=== PATIENT | female | born 1990 | race African-American/Black ===

== ENCOUNTER 2020-08-19 15:38 | Emergency (ER) | payer SELFPAY ==
--- NOTE | 2020-08-19 16:14 | PC.NURSE ---
While sitting at intake desk pt decided that she did not want to be seen by provider. pt encouraged to stay for eval of c/o htn. pt states that she will seek a pcp. pt continues to deny wanting to continue with intake/triage.
== END 2020-08-19 16:14 | disposition left against medical advice (07) ==
DX: I10 Essential (primary) hypertension (principal)
CPT/HCPCS: 99199

== ENCOUNTER 2020-08-20 17:20 | Emergency (ER) | payer MEDICAID, SELFPAY ==
[2020-08-20 17:26] VITALS: BP 161/98; PULSE 66; RESP 18; TEMP 36.4; O2SAT 99
--- NOTE | 2020-08-20 17:46 | ED.GENADULT ---
HPI - General Adult General Chief complaint: Headache Stated complaint: htn, headache Time Seen by Provider: 08/20/20 17:32 Source: patient Mode of arrival: ambulatory Limitations: no limitations History of Present Illness HPI narrative: Patient is a 30-year-old female who presents with generalized headache for the last 2 weeks it comes and goes taking [id number] medications with minimal improvement has upcoming appointment with new primary care doctor has not taken anything other than [id number] medications had a history of high tension in which resolved after the patient know she has been taking her pressure at home and getting blood pressure around 160/100 patient does not take anything for her blood pressure patient on arrival to emergency department is in the room in no distress presents per private vehicle does not appear uncomfortable denies illness vomiting or other complaints Related Data Allergies Allergy/AdvReac Type Severity Reaction Status Date / Time No Known Allergies Allergy Unknown Verified 08/20/20 17:30 Review of Systems Review of Systems: All systems reviewed & are unremarkable except as noted in HPI and below PMFSH Past Medical History Medical History Gestational hypertension Pre-eclampsia Surgical History Surgical History H/O section Family History Family History Other Diabetes mellitus Unknown family medical history Social History Social History Smoking status: Never smoker Second hand tobacco smoke exposure: No Alcohol intake: current Substance use: never Gender identity (if verbalized by the patient): Female Spiritual care concerns: No Exam Narrative: Exam Narrative: GENERAL: Well-appearing, well-nourished, and in no acute distress. HEAD: Normocephalic, atraumatic. EYES: PERRLA and EOMI. ENT: Nares clear, no rhinorrhea or epistaxis. Mucous membranes moist. CHEST: Clear to auscultation. No respiratory distress. No wheezes rales or rhonchi HEART: Regular rate and rhythm. No murmur heard. EXTREMITIES: Normal range of motion. No edema. SKIN: Warm, dry, no rash. NEURO: No focal deficits. Alert and oriented x3. PSYCH: Normal mood and affect. Course Course Emergency Course: Patient was given blood pressure medication in the emergency department and will be discharged home on blood pressure medicine is also been advised to keep a diary of her blood pressures to take to her upcoming appointment. Patient without high risk changes in the blood work felt appropriate for outpatient reevaluation provided with reasons to return patient agrees with this plan patient hemodynamically stable at this time Vital Signs Vital signs: Vital Signs Temperature 97.5 F L 08/20/20 17:26 Pulse Rate 66 08/20/20 17:26 Respiratory Rate 18 08/20/20 17:26 Blood Pressure 161/98 H 08/20/20 17:26 Pulse Oximetry 99 08/20/20 17:26 Temperature 98 F 08/20/20 20:06 Pulse Rate 64 08/20/20 20:48 Respiratory Rate 16 08/20/20 20:48 Blood Pressure 151/115 H 08/20/20 20:48 Pulse Oximetry 100 08/20/20 20:48 Medical Decision Making MDM Narrative Medical decision making narrative: Patients headache was not sudden or maximal in onset. There are no focal neurological deficits on exam. Subarachnoid hemorrhage is felt to be unlikey at this time. There is no history of fever, and neck is supple without meningismus, making meningitis unlikely. Patient's blood pressure likely could be an etiology for headache patient resting comfortably in the room during her visit with improvement with medications will be sent home on a low-dose blood pressure medicine pending her primary care follow-up. patients headache is felt to be a reasonabl
[2020-08-20] MEDS: KETOROLAC 30 MG/ML VIAL (*BKC) IV PUSH (18:07)
[2020-08-20] MEDS: SODIUM CHLORIDE 0.9% IV 1,000 ML 999 ML IV CONT (18:07)
[2020-08-20 18:17] LABS: Basophils Percent Auto 0.4 % (0.2-1.2); Eosinophils Absolute Auto 0.4 K/mm3 (0-0.3); Eosinophils Percent Auto 5.1 % (0-4.4); Hematocrit 36.2 % (37.0-47.0); Hemoglobin 12.5 g/dL (12.0-15.0); Immature Granulocyte Absolute 0.01 K/mm3 (0.00-0.031); Immature Granulocyte Percent A 0.1 % (0-0.5); Lymphocytes Absolute Auto 1.89 K/mm3 (0.9-3.2); Lymphocytes Percent Auto 27.7 % (18.3-44.2); Mean Corpuscular HGB Conc 34.5 g/dl (32-36); Mean Corpuscular Hemoglobin 30.6 pg (26-34); Mean Corpuscular Volume 88.5 fl (80-100); Mean Platelet Volume 9.1 fl (7.4-10.4); Monocytes Absolute Auto 0.4 K/mm3 (0.1-0.6); Monocytes Percent Auto 6.3 % (2.6-8.5); Neutrophils Absolute Auto 4.1 K/mm3 (1.3-6.7); Neutrophils Percent Auto 60.4 % (45.5-73.1); Platelet Count Result 303 k/mm3 (150-375); Red Blood Count 4.09 M/mm3 (4.2-5.4); Red Cell Distribution Width 12.4 % (11.5-14.5); White Blood Count 6.8 K/mm3 (4.5-10.0)
[2020-08-20 19:01] LABS: Anion Gap 4 mmol/L (8-16); Blood Urea Nitrogen 13 mg/dL (7-17); Calcium 8.7 mg/dL (8.4-10.2); Carbon Dioxide 31 mmol/L (22-30); Chloride 105 mmol/L (98-107); Estimated CRCL calculation 92 ml/min; Estimated Glomerular Filt Rate > 60; Glucose 86 mg/dL (65-105); Potassium 3.4 mmol/L (3.4-5.0); Sodium 140 mmol/L (137-145)
[2020-08-20 20:06] VITALS: BP 180/110; PULSE 68; RESP 16; TEMP 36.6; O2SAT 100
[2020-08-20] MEDS: cloNIDine HCL 0.1 MG TABLET PO (20:12)
[2020-08-20] MEDS: LORazepam INJ (*CRX) 2 MG/ML VIAL 1 MG IV PUSH (20:12)
[2020-08-20 20:48] VITALS: BP 151/115; PULSE 64; RESP 16; O2SAT 100
[2020-08-20] MEDS: hydrALAZINE HCL 20 MG/ML VIAL 10 MG IV PUSH (20:55)
[2020-08-20 21:21] VITALS: BP 116/100; PULSE 77; RESP 16; TEMP 36.6; O2SAT 99
== END 2020-08-20 21:30 | disposition home or self-care (01) ==
PROVIDERS: Emergency Medicine Emergency Medical Services; Emergency Provider Emergency Medicine
DX: R51.9 Headache, unspecified (principal); R03.0 Elevated blood-pressure reading, without diagnosis of hypertension
CPT/HCPCS: 36415; 80048; 85025; 96361; 96374; 96375; 99284; A9270; J0360; J1885; J2060; J7030

== ENCOUNTER 2020-10-05 09:04 | Emergency (ER) | payer MEDICAID, SELFPAY ==
[2020-10-05 09:07] VITALS: BP 136/89; PULSE 69; RESP 18; TEMP 36.1; O2SAT 99
--- NOTE | 2020-10-05 09:50 | ED.BACK ---
HPI - Back Pain/Injury General Chief Complaint: Back Pain/Injury Stated Complaint: back pain Time Seen by Provider: 10/05/20 09:06 Source: RN notes reviewed History of Present Illness HPI Narrative: Patient presents emergency department from home for back pain. Patient states pain began 3 days ago pain is located bilateral lower back and radiates into the buttocks described as aching in nature pain is worse with bending over states she has been taking ibuprofen Tylenol for pain at home with no relief with last dose yesterday denies any fevers or chills chest pain shortness of breath abdominal pain nausea vomiting numbness or tingling in the extremities bowel or bladder incontinence or any other symptoms. Denies any direct trauma or injury Related Data Allergies Allergy/AdvReac Type Severity Reaction Status Date / Time No Known Allergies Allergy Unknown Verified 10/05/20 09:12 Review of Systems Review of Systems: Narrative: Gen.: Denies fevers or chills ENT: Denies congestion Respiratory: Denies shortness of breath or cough CV: Denies chest pain or palpitations GI: Denies abdominal pain nausea, emesis or diarrhea denies bowel or bladder incontinence Musculoskeletal: See HPI Neuro: Denies numbness, tingling, weakness or focal weakness Skin: Denies rash Except as documented, all other systems reviewed and negative [facility] Past Medical History Medical History Gestational hypertension Pre-eclampsia Surgical History Surgical History H/O section Family History Family History Other Diabetes mellitus Unknown family medical history Social History Social History Smoking status: Never smoker Second hand tobacco smoke exposure: No Alcohol intake: current Substance use: never Gender identity (if verbalized by the patient): Female Spiritual care concerns: No Exam Narrative: Exam Narrative: APPEARANCE: No acute distress, nontoxic, resting in bed Eyes: EOMI HEENT: Normocephalic, atraumatic, CV: Regular rate and rhythm without murmur RESPIRATORY: No respiratory distress. Clear to auscultation bilaterally. Abdomen: Soft and nontender, no rebound or guarding MUSCULOSKELETAl: Moves all extremities, no clubbing cyanosis or edema Back: No midline lumbar tenderness to palpation or step-off, tender to palpation over bilateral paravertebral muscles L3-5 , pain increased with forward flexion NEURO: Awake and alert. Following commands, speech normal, no focal deficits, muscle strength 5 out of 5 bilateral lower extremities, bilateral patellar reflex 2+ SKIN:: Warm, dry. Normal Color no rash or lesions Course Course Emergency Course: Discussed with patient results of workup and diagnosis. Discussed need for follow-up with primary care, proper use of medication, and reasons to return to the emergency department. Patient understands and agrees to current treatment plan Vital Signs Vital signs: Vital Signs Temperature 97.0 F L 10/05/20 09:07 Pulse Rate 69 10/05/20 09:07 Respiratory Rate 18 10/05/20 09:07 Blood Pressure 136/89 10/05/20 09:07 Pulse Oximetry 99 10/05/20 09:07 Temperature 97.0 F L 10/05/20 09:07 Pulse Rate 69 10/05/20 09:07 Respiratory Rate 18 10/05/20 09:07 Blood Pressure 136/89 10/05/20 09:07 Pulse Oximetry 99 10/05/20 09:07 MDM - Back Pain/Injury MDM Narrative Medical decision making narrative: Patient?s pain is positional and localized to back without signs of cord compression or cauda equina. Normal nuerologic exams. No fever noted and no significant risk factors for osteomyelitis or spinal epidural abscess. No symptoms or signs to suggest pain is referred from abdominal or source. There are no pulsatile masses to exam. Patient ambulat
[2020-10-05 09:54] LABS: Add Urine Microscopic? YES; Appearance Urine Clear (Clear); Bacteria Urine Trace /hpf; Bilirubin Urine Negative (Negative); Blood Urine 1+ (Negative); Color Urine Yellow (Yellow); Glucose Urine UA Negative (Negative); Ketones Urine Negative (Negative); Leukocyte Esterase Ur Negative LEU/UL (Negative); Mucus Urine Few /lpf; Nitrate Urine Negative (Negative); Protein Urine 1+ mg/dL (Negative); Specific Grav Ur 1.016 (1.001-1.035); Squamous Epithelial Cell Urine Moderate /hpf (Few); Urobilinogen Urine Negative mg/dL (<2.0); WBC Urine 0-3 /hpf
== END 2020-10-05 10:35 | disposition home or self-care (01) ==
PROVIDERS: Emergency Provider Emergency Medicine
DX: M54.5 Low back pain (principal)
CPT/HCPCS: 81001; 81025; 99283

== ENCOUNTER 2020-10-15 04:51 | Emergency (ER) | payer MEDICAID, SELFPAY ==
--- NOTE | ~2020-10-15 | XR_ITS ---
EXAMINATION: XR lumbar spine 2-3V DATE: 10/15/2020 06:44 INDICATION: Low back pain TECHNIQUE: Anteroposterior and lateral views of the lumbar spine, and cone-down lateral view of the l umbosacral junction were obtained. COMPARISON: None. FINDINGS: There is mild loss of intervertebral disc space height at L5-S1. Bone alignment is normal. There is no fracture. Vertebral body heights are maintained. Small degenerative osteophytes project f rom the anterior endplates of T11 and T12. IMPRESSION: 1. Mild lower thoracic and lumbar spondylosis without acute findings. Reviewed, dictated and finalized at location [facility]
[2020-10-15 04:54] VITALS: BP 143/100; PULSE 88; RESP 14; TEMP 36.2; O2SAT 99
--- NOTE | 2020-10-15 05:31 | ED.BACK ---
HPI - Back Pain/Injury General Chief Complaint: Back Pain/Injury Stated Complaint: back pain Time Seen by Provider: 10/15/20 05:30 History of Present Illness HPI Narrative: Low back pain for about the past 2 weeks. The pain is bilateral and radiates down into the thighs. Worse with prolonged standing. She was seen here for it on 10/04 and prescribed motrin and flexeril. The pain started to improve, but then came back. No trauma, weakness, numbness, fever, dysuria, hematuria. Related Data Allergies Allergy/AdvReac Type Severity Reaction Status Date / Time No Known Allergies Allergy Unknown Verified 10/05/20 09:12 Review of Systems Review of Systems: All systems reviewed & are unremarkable except as noted in HPI and below Constitutional: Constitutional: Denies chills, Denies fever(s) and Denies weakness Cardiovascular: Cardiovascular: Denies chest pain Respiratory: Respiratory: Denies dyspnea Gastrointestinal: Gastrointestinal: Denies nausea Genitourinary: Genitourinary: Denies hematuria, Denies nocturia and Denies dysuria Musculoskeletal: Musculoskeletal: Reports back pain Neurologic: Denies numbness and Denies weakness [facility] Past Medical History Medical History Gestational hypertension Pre-eclampsia Surgical History Surgical History H/O section Family History Family History Other Diabetes mellitus Unknown family medical history Social History Social History Smoking status: Never smoker Second hand tobacco smoke exposure: No Alcohol intake: current Substance use: never Gender identity (if verbalized by the patient): Female Spiritual care concerns: No Exam Const: General: healthy appearing, no acute distress and alert Orientation/consciousness: patient oriented x3 HENMT: Head: normal to inspection Resp: Effort & Inspection: normal respiratory effort Auscultation: clear to auscultation bilaterally Cardio: Rate: regular rate Rhythm: regular rhythm : General: Yes CVA tenderness bilateral Skin: General skin exam: normal color Neuro: General: patient oriented x3, moves all extremities and CN's II-XI intact bilaterally Speech: normal speech Gait exam (Neuro): Normal gait present Extrem: General: normal to inspection Course Vital Signs Vital signs: Vital Signs Temperature 36.2 C L 10/15/20 04:54 Pulse Rate 88 10/15/20 04:54 Respiratory Rate 14 10/15/20 04:54 Blood Pressure 143/100 H 10/15/20 04:54 Pulse Oximetry 99 10/15/20 04:54 Temperature 36.2 C L 10/15/20 04:54 Pulse Rate 80 10/15/20 07:12 Respiratory Rate 17 10/15/20 07:12 Blood Pressure 138/85 10/15/20 07:12 Pulse Oximetry 100 10/15/20 07:12 MDM - Back Pain/Injury Differential Diagnosis Differential diagnosis: Likely sciatica and strain of lumbar region Medical Records Attestation: I reviewed the patient's medical records. Imaging Data Radiologist's impression: ITS Impressions Lumbar Spine X-Ray 10/15/20 06:45 IMPRESSION: 1. Mild lower thoracic and lumbar spondylosis without acute findings. Discharge Plan Discharge Clinical Impression: Strain of lumbar region Patient Disposition: Home, Self-Care Condition: Stable Instructions: Antibiotic Form, Acute Low Back Pain (ED), Lower Back Exercises (ED) Prescriptions: New diazepam [Valium] 2 mg tablet 2 mg PO BID PRN (Reason: muscle spasm) Qty: 10 RF: 0 methylprednisolone [Medrol (Demetrio)] 4 mg tablets,dose pack See Rx Instructions .ROUTE .COMPLEX Qty: 21 RF: 0 No Action ibuprofen [IBU] 600 mg tablet 600 mg PO Q6H PRN (Reason: pain) Qty: 20 RF: 0 Follow-up/Referrals: Brock Salas MD [Physician] - PHYSICIAN,[facility] [Primary Care [facility]
[2020-10-15] MEDS: KETOROLAC (*BKC) 60 MG/2 ML VIAL IM (05:47)
[2020-10-15] MEDS: diazePAM INJ (*CRX) 10 MG/2 ML SYRINGE 5 MG IM (06:29)
[2020-10-15 07:12] VITALS: BP 138/85; PULSE 80; RESP 17; O2SAT 100
== END 2020-10-15 07:14 | disposition home or self-care (01) ==
PROVIDERS: Emergency Provider Emergency Medicine
DX: S39.012A Strain of muscle, fascia and tendon of lower back, initial encounter (principal); M47.816 Spondylosis without myelopathy or radiculopathy, lumbar region; M47.814 Spondylosis without myelopathy or radiculopathy, thoracic region; X58.XXXA Exposure to other specified factors, initial encounter
CPT/HCPCS: 72100; 96372; 96374; 99284; J1100; J1885; J3360

== ENCOUNTER 2021-02-12 11:14 | Emergency (ER) | payer OTHER, SELFPAY ==
[2021-02-12 11:24] VITALS: BP 158/89; PULSE 68; RESP 20; TEMP 36.4; O2SAT 100
--- NOTE | 2021-02-12 11:25 | ECG_ITS ---
Measurements Intervals [place] Rate: 56 P: 21 IN: 185 QRS: 30 QRSD: 90 T: 28 QT: 407 QTc: 396 Interpretive Statements SINUS BRADYCARDIA WITH SINUS ARRHYTHMIA T WAVE ABNORMALITY IN ANTERIOR LEADS- CONSIDER ISCHEMIA ABNORMAL ECG Electronically Signed On 02-12-2021 17:17:02 CDT by Sam Peterson D.O.
--- NOTE | 2021-02-12 11:28 | ED.GENADULT ---
HPI - General Adult General Chief complaint: Dizziness Stated complaint: caffeine overdose Time Seen by Provider: 02/12/21 11:29 Source: patient and RN notes reviewed Mode of arrival: ambulatory Limitations: no limitations History of Present Illness HPI narrative: 30-year-old female with history of untreated hypertension presents with concern for dizziness, chest pressure, hot flashes, shortness of breath. Reports it feels like something sitting on my chest . Reports symptoms started this morning after she had a headache and took two Excedrin with a cup of coffee. Reports the headache resolved, but these symptoms started subsequently. She denies syncope. MD complaint: Dizziness Related Data Allergies Allergy/AdvReac Type Severity Reaction Status Date / Time No Known Allergies Allergy Unknown Verified 10/05/20 09:12 Review of Systems Review of Systems: Narrative: CONSTITUTIONAL: Denies malaise, chills, sweats, or fever. EYES: Denies visual changes CARDIOVASCULAR: Reports chest pressure, heaviness RESPIRATORY: Reports dyspnea. GASTROINTESTINAL: Denies abdominal pain, nausea, vomiting, diarrhea MUSCULOSKELETAL: Denies back pain or myalgia. NEUROLOGIC: Denies numbness, weakness. Reports resolved headache. Reports dizziness PSYCHIATRIC: Denies anxiety All systems reviewed & are unremarkable except as noted in HPI and below PMFSH Past Medical History Medical History Gestational hypertension Pre-eclampsia Surgical History Surgical History H/O section Family History Family History Other Diabetes mellitus Unknown family medical history Social History Social History Smoking status: Never smoker Second hand tobacco smoke exposure: No Alcohol intake: current Substance use: never Gender identity (if verbalized by the patient): Female Spiritual care concerns: No Comments At time of signature, agree with nursing past medical, surgical, social and family history. There is no relevant family history pertinent to the presenting complaint Exam Narrative: Exam Narrative: GENERAL: Well-appearing, well-nourished, and in no acute distress. HEAD: Normocephalic, atraumatic. EYES: PERRLA, conjunctivae clear, and EOMI. No nystagmus. ENT: Nares clear. Mucous membranes moist. NECK: Supple. No lymphadenopathy. No jugular venous distension, thyromegaly, or carotid bruits. Carotids were easily palpable bilaterally. CHEST: No respiratory distress. Clear to auscultation. No bony deformities, no asymmetry. Speaks in full sentences. HEART: Bradycardic rate. No murmur heard. Normal peripheral pulses. SKIN: Warm, dry, no rash. NEURO: Alert and oriented x3. PSYCH: Normal mood and affect Course Course Emergency Course: Patient is aware of, understands and agrees to transfer to emergency department via EMS. Portions of this record may have been created with voice recognition software Vital Signs Vital signs: Vital Signs Temperature 97.5 F L 02/12/21 11:24 Respiratory Rate 20 02/12/21 11:24 Blood Pressure 158/89 H 02/12/21 11:24 Pulse Oximetry 100 02/12/21 11:24 Temperature 97.5 F L 02/12/21 11:24 Respiratory Rate 20 02/12/21 11:24 Blood Pressure 158/89 H 02/12/21 11:24 Pulse Oximetry 100 02/12/21 11:24 Reviewed. Patient has history of hypertension Transfer Transfered to: [facility] Transfer rationale: Chest pressure, abnormal EKG, bradycardia, shortness of breath, dizziness Accepting physician: Saúl Medical Decision Making [facility] Narrative Medical decision making narrative: Exam findings, patient history, and EKG warrant further evaluation emergency department; patient is non-toxic appearing and is in no acute distress. Vital Signs Vital Signs: Vital
== END 2021-02-12 11:53 | disposition short-term general hospital (02) ==
PROVIDERS: Emergency Provider Nurse Practitioner; PCP Family Medicine
DX: R07.89 Other chest pain (principal); R94.31 Abnormal electrocardiogram [ECG] [EKG]
CPT/HCPCS: 93005; 99215; G0463

== ENCOUNTER 2021-02-12 12:11 | Emergency (ER) | payer OTHER, SELFPAY ==
--- NOTE | 2021-02-12 12:15 | PC.NURSE ---
PT BROUGHT IN BY [facility] FROM [facility]RGENT CARE FOR CHEST PAIN. AFTER REGISTERING PT TOLD SHE WOULD WAITING IN THE WAITING ROOM. PT STATES I HATE THIS PLACE. I'M NOT ABOUT TO WAIT IN THIS WAITING ROOM BY MYSELF. INFORMED PT ONCE SHE IS PLACED IN A ROOM HER CAN COME BACK TO THE ROOM. PT REFUSES. STATES SHE IS LEAVING. INFORMED OF RISKS OF LEAVING WITHOUT BEING SEEN IV IN [facility] THAT WAS PLACED BY EMS WAS REMOVED. TO DRIVE PT HOME. PT AMBULATED TO EXIT WITH STEADY GAIT
== END 2021-02-12 12:15 | disposition left against medical advice (07) ==
PROVIDERS: PCP Family Medicine
DX: Z53.21 Procedure and treatment not carried out due to patient leaving prior to being seen by health care provider (principal)
CPT/HCPCS: 99199

== ENCOUNTER 2021-11-16 13:59 | Emergency (ER) | payer OTHER, SELFPAY ==
[2021-11-16 14:04] VITALS: BP 129/84; PULSE 72; RESP 16; TEMP 36.7; O2SAT 100
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
== END 2021-11-16 14:52 | disposition home or self-care (01) ==
PROVIDERS: Emergency Provider Nurse Practitioner Family; PCP Family Medicine
DX: S00.531A Contusion of lip, initial encounter (principal); Y04.0XXA Assault by unarmed brawl or fight, initial encounter
CPT/HCPCS: 99211; G0463

== ENCOUNTER 2022-05-04 06:07 | Emergency (ER) | payer OTHER, MEDICAID, SELFPAY ==
--- NOTE | ~2022-05-04 | CT_ITS ---
EXAMINATION: CT soft tissue neck w con DATE: 05/04/2022 08:25 INDICATION: Throat pain. TECHNIQUE: Computed tomography (CT) of the neck was performed with 75 mL Omnipaque-350 intravenous co ntrast. Automated exposure control and iterative reconstruction technique were employed. The dose-anny gth product was 501.31 mGy-cm. COMPARISON: None FINDINGS: The adenoids and palatine tonsils are enlarged. No abscess. The epiglottis is normal. There is mild bilateral high internal jugular chain lymphadenopathy. The bones are unremarkable. IMPRESSION: 1. Enlarged adenoids and palatine tonsils. No abscess. 2. Mild bilateral high internal jugular chain lymphadenopathy, likely reactive. Reviewed, dictated and finalized at location A.
[2022-05-04 06:11] VITALS: BP 180/98; PULSE 64; RESP 16; TEMP 36.2; O2SAT 100
[2022-05-04] MEDS: SODIUM CHLORIDE 0.9% IV 1,000 ML 999 ML IV CONT (07:38)
[2022-05-04] MEDS: KETOROLAC 30 MG/ML VIAL (*BKC) IV PUSH (07:39)
[2022-05-04 07:46] LABS: Basophils Percent Auto 0.2 % (0.2-1.2); Eosinophils Percent Auto 0.3 % (0-4.4); Hemoglobin 11.1 g/dL (12.0-15.0); Immature Granulocyte Absolute 0.05 K/mm3 (0.00-0.031); Immature Granulocyte Percent A 0.5 % (0-0.5); Lymphocytes Absolute Auto 2.31 K/mm3 (0.9-3.2); Lymphocytes Percent Auto 20.8 % (18.3-44.2); Mean Corpuscular HGB Conc 32.6 g/dl (32-36); Mean Corpuscular Hemoglobin 30.7 pg (26-34); Mean Corpuscular Volume 94.2 fl (80-100); Mean Platelet Volume 8.9 fl (7.4-10.4); Monocytes Absolute Auto 0.6 K/mm3 (0.1-0.6); Monocytes Percent Auto 5.8 % (2.6-8.5); Neutrophils Absolute Auto 8.1 K/mm3 (1.3-6.7); Neutrophils Percent Auto 72.4 % (45.5-73.1); Platelet Count Result 255 k/mm3 (150-375); Red Blood Count 3.61 M/mm3 (4.2-5.4); Red Cell Distribution Width 12.9 % (11.5-14.5); White Blood Count 11.1 K/mm3 (4.5-10.0)
[2022-05-04 08:03] LABS: Monoscreen Negative (Negative); Negative Monotest Control Negative (Negative); Positive Monotest Control Positive (Positive)
[2022-05-04 08:05] LABS: Alanine Aminotransferase 15 U/L (6-35); Albumin Level 3.9 g/dL (3.5-5.1); Alkaline Phosphatase 51 U/L (38-126); Anion Gap 8 mmol/L (8-16); Aspartate Amino Transferase 31 U/L (14-36); Bilirubin,Total 0.2 mg/dL (0.2-1.3); Blood Urea Nitrogen 18 mg/dL (7-17); Calcium 8.2 mg/dL (8.4-10.2); Carbon Dioxide 32 mmol/L (22-30); Chloride 101 mmol/L (98-107); Estimated CRCL calculation 82 ml/min; Estimated Glomerular Filt Rate > 60; Glucose 112 mg/dL (65-110); Potassium 2.9 mmol/L (3.4-5.0); Sodium 141 mmol/L (137-145)
[2022-05-04 08:22] LABS: SARS-CoV-2 RNA PCR Negative
[2022-05-04] MEDS: CLINDAMYCIN HCL 150 MG CAP 300 MG PO (08:57)
[2022-05-04] MEDS: ONDANSETRON INJ 4 MG/2 ML VIAL IV PUSH (09:19)
[2022-05-04] MEDS: POTASSIUM CHLORIDE 20 MEQ PACKET (FOR LIQUID) 40 MEQ PO (09:19)
--- NOTE | 2022-05-04 09:41 | ED.GENADULT ---
HPI - General Adult General Chief complaint: Upper Respiratory Infection Stated complaint: SORE THROAT,SLADE Time Seen by Provider: 05/04/22 06:22 Source: RN notes reviewed History of Present Illness HPI narrative: Patient presents emergency department from home for sore throat. Patient states symptoms began approximately 4 days ago. States that she was seen at [facility] at that time was placed on steroids and amoxicillin which she has been taking she is out of her steroid she states she continues to have a sore throat and headache she denies any fevers or chills rhinorrhea cough abdominal pain nausea vomiting. States that she is able to swallow her own secretions but states it is painful to swallow Related Data Home Medications Medication Instructions Recorded Confirmed lisinopril 10 tablet 11/16/21 mg-hydrochlorothiazide 12.5 mg tablet amoxicillin 875 mg tablet mg 05/04/22 Allergies Allergy/AdvReac Type Severity Reaction Status Date / Time No Known Allergies Allergy Unknown Verified 05/04/22 06:40 Review of Systems Review of Systems: Gen.: Denies fevers or chills Eyes: Denies eye pain or visual change ENT: See HPI Respiratory: Denies shortness of breath or cough CV: Denies chest pain GI: Denies abdominal pain nausea, emesis or diarrhea Musculoskeletal: Denies back pain or muscle pain Neuro: Reports headache denies numbness or tingling Skin: Denies rash Except as documented, all other systems reviewed and negative [facility] Past Medical History Medical History Gestational hypertension Pre-eclampsia Surgical History Surgical History H/O section Family History Family History Other Diabetes mellitus Unknown family medical history Social History Social History Smoking status: Never smoker Second hand tobacco smoke exposure: No Alcohol intake: current Substance use: never Gender identity (if verbalized by the patient): Female Spiritual care concerns: No Exam Narrative: APPEARANCE: No acute distress, nontoxic, resting in bed EYES: EOMI HEENT: Normocephalic, atraumatic, TMs clear bilaterally nares pain or mucosa moist erythema the posterior pharynx and bilateral tonsils tonsils are 3+ with whitish exudate bilaterally uvula is midline no trismus tolerating own secretions voice is normal RESPIRATORY: No respiratory distress Clear to auscultation bilaterally with no rhonchi wheezing or rales. CARDIOVASCULAR: Regular rate and rhythm without murmurs rubs or gallops. ABDOMINAL: Soft, nontender, nondistended, MUSCULOSKELETAl: Moves all extremities. No clubbing, cyanosis or edema. NEURO: Awake and alert. Following commands, speech normal, no focal deficits SKIN:: Warm, dry. No rashes lesions or abrasions PSYCHIATRIC: Normal affect/mood, Course Course Emergency Course: Patient states she is feeling better at this time Discussed with patient results of workup and diagnosis. Discussed need for follow-up with primary care, proper use of medication, and reasons to return to the emergency department. Patient understands and agrees to current treatment plan Vital Signs Vital signs: Vital Signs Temperature 97.1 F L 05/04/22 06:11 Pulse Rate 64 05/04/22 06:11 Respiratory Rate 16 05/04/22 06:11 Blood Pressure 180/98 H 05/04/22 06:11 Pulse Oximetry 100 05/04/22 06:11 Oxygen Delivery Room Air 05/04/22 06:11 Temperature 97.1 F L 05/04/22 06:11 Pulse Rate 64 05/04/22 06:11 Respiratory Rate 16 05/04/22 06:11 Blood Pressure 180/98 H 05/04/22 06:11 Pulse Oximetry 100 05/04/22 06:11 Oxygen Delivery Room Air 05/04/22 06:11 Medical Decision Making Vital Signs Vital Signs: Vital Signs Temperature 97.1 F L
[2022-05-04 10:00] VITALS: BP 123/88; PULSE 88; RESP 19; O2SAT 97
== END 2022-05-04 10:00 | disposition home or self-care (01) ==
PROVIDERS: Emergency Provider Emergency Medicine; PCP Family Medicine
DX: J03.90 Acute tonsillitis, unspecified (principal)
CPT/HCPCS: 36415; 70491; 80053; 85025; 86308; 87081; 87880; 96361; 96374; 96375; 99284; A9270; C9803; J1100; J1885; J2405; J7030; Q9967; U0003; U0005

== ENCOUNTER 2024-03-05 22:48 | Emergency (ER) | payer OTHER, SELFPAY ==
--- NOTE | ~2024-03-05 | XR_ITS ---
EXAMINATION: XR chest 1V portable Exam Date/Time: 03/05/2024 22:59 CDT HISTORY: CHEST PAIN Comparison: 08/13/2012. RESULT: Lines, tubes, and devices: None. Lungs and pleura: Clear. Cardiomediastinal silhouette: Stable. Other: No acute osseous or upper abdominal finding. IMPRESSION: No acute cardiopulmonary process. Reviewed, dictated and finalized at location K.
--- NOTE | 2024-03-05 22:49 | ECG_ITS ---
[facility] [address] Test Date: 2024-03-05 Pat Name: Liat Hernandez Department: Room: Gender: F Museum Host/Hostess: : 1990 Requested By: Maryjo Marc Order Number: [id number] Reading MD: Yumiko Fontana M.D. Measurements Intervals [place] Rate: 71 P: 38 VA: 201 QRS: 21 QRSD: 89 T: 8 QT: 364 QTc: 397 Interpretive Statements SINUS RHYTHM T WAVE ABNORMALITY IN THE ANTERIOR LEADS, CONSIDER ISCHEMIA No previous ECG available for comparison Electronically Signed On 03-06-2024 14:00:45 CDT by Yumiko Fontana M.D.
[2024-03-05 22:53] VITALS: BP 149/102; PULSE 77; RESP 20; O2SAT 97
[2024-03-05 23:08] VITALS: PULSE 78; O2SAT 98
[2024-03-05] MEDS: ASPIRIN 81 MG CHEWABLE TABLET 324 MG PO (23:09)
[2024-03-05 23:13] LABS: Basophils Percent Auto 0.2 % (0.2-1.2); Hematocrit 38.1 % (37.0-47.0); Hemoglobin 13.1 g/dL (12.0-15.0); Immature Granulocyte Absolute 0.01 K/mm3 (0.00-0.031); Immature Granulocyte Percent A 0.2 % (0-0.5); Lymphocytes Absolute Auto 0.97 K/mm3 (0.9-3.2); Lymphocytes Percent Auto 23.5 % (18.3-44.2); Mean Corpuscular HGB Conc 34.4 g/dl (32-36); Mean Corpuscular Hemoglobin 31.5 pg (26-34); Mean Corpuscular Volume 91.6 fl (80-100); Mean Platelet Volume 8.9 fl (7.4-10.4); Monocytes Absolute Auto 0.6 K/mm3 (0.1-0.6); Monocytes Percent Auto 13.8 % (2.6-8.5); Neutrophils Absolute Auto 2.6 K/mm3 (1.3-6.7); Neutrophils Percent Auto 62.3 % (45.5-73.1); Platelet Count Result 227 k/mm3 (150-375); Red Blood Count 4.16 M/mm3 (4.2-5.4); Red Cell Distribution Width 13.1 % (11.5-14.5); White Blood Count 4.1 K/mm3 (4.5-10.0)
[2024-03-05 23:36] LABS: Prothrombin Time 13.8 Seconds (11.1-14.7)
[2024-03-05 23:37] LABS: Partial Thromboplastin Time 28.6 Seconds (22.3-36.8)
[2024-03-05 23:52] LABS: Alanine Aminotransferase 13 U/L (6-35); Albumin Level 4.6 g/dL (3.5-5.1); Alkaline Phosphatase 53 U/L (38-126); Anion Gap 9 mmol/L (4-12); Aspartate Amino Transferase 28 U/L (14-36); Bilirubin,Total 0.6 mg/dL (0.2-1.3); Blood Urea Nitrogen 8 mg/dL (7-17); Calcium 9.2 mg/dL (8.4-10.2); Carbon Dioxide 27 mmol/L (22-30); Chloride 101 mmol/L (98-107); Estimated CRCL calculation 81 ml/min; Estimated Glomerular Filt Rate > 60; Glucose 105 mg/dL (65-110); Lipase 86 U/L (23-300); Potassium 2.9 mmol/L (3.4-5.0); Sodium 137 mmol/L (137-145)
[2024-03-06 00:04] LABS: Troponin I < 0.012 ng/mL (0.000-0.034)
[2024-03-06] MEDS: POTASSIUM CHLORIDE 20 MEQ ER TABLET 40 MEQ PO (00:52)
[2024-03-06] MEDS: POTASSIUM CHLORIDE 20 MEQ PACKET (FOR LIQUID) 40 MEQ PO (00:52)
--- NOTE | 2024-03-06 01:01 | ED.CHESTPAIN ---
HPI - Chest Pain General Chief Complaint: Chest Pain Stated Complaint: Chest pain Time Seen by Provider: 03/05/24 23:44 History of Present Illness HPI narrative: Patient is a 33-year-old female who presents to the emergency department this evening complaining of chest pain. Patient states that the pain started around 10:30 p.m. while she was laying in bed. Patient states the pain did radiate to her left shoulder and states that she had 1 episode of shortness of breath prior to the chest pain but currently denies any shortness of breath and is currently denying any sharp stabbing or pressure-like chest pain. Patient states that she has been having these chest pains on and off intermittently for a while now and has a proof inspector appointment upcoming in a few days. Patient's only past medical history significant for hypertension. She is currently denying any additional symptoms or concerns at this time. Related Data Home Medications Medication Instructions Recorded Confirmed amlodipine 5 mg tablet 5 mg PO 05/10/23 ergocalciferol (vitamin D2) 1,250 1,250 mcg PO 05/10/23 mcg (50,000 unit) capsule (Vitamin D2) fluoxetine 10 mg capsule 10 mg PO 05/10/23 Allergies Allergy/AdvReac Type Severity Reaction Status Date / Time No Known Allergies Allergy Unknown Verified 03/05/24 23:08 Review of Systems Review of Systems: All systems are reviewed and are negative unless stated otherwise in the HPI. [facility] Past Medical History Medical History Gestational hypertension Pre-eclampsia Surgical History Surgical History Delivery by section (03/16/16) primary c/s arrest of cilation H/O bilateral breast reduction surgery H/O section (09/19/19) rpt c/ s Family History Family History Grandparent Diabetes mellitus maternal grandfather Hypertension Maternal grandmother Other Unknown family medical history Social History Social History Smoking status: Never smoker Second hand tobacco smoke exposure: No Alcohol intake: current Substance use: current Substance use type: marijuana Living arrangements: with family Gender identity (if verbalized by the patient): Female Spiritual care concerns: No Exam Narrative: General: Alert, awake, afebrile, in no acute distress. HEENT: PERRL, no rhinorrhea, no post nasal drip, oropharynx clear. Cardiovascular: Regular rate and rhythm, no murmurs, rubs or gallops, no peripheral edema. Respiratory: Clear to auscultation bilaterally, no tachypnea, no wheezing, no rhonchi, no rubs, no respiratory distress. Abdomen: Soft, nontender, nondistended, no rebound, no guarding, no peritoneal signs. Musculoskeletal: No joint swelling or deformity, normal muscle tone. Skin: No rashes or petechia, no signs of infection. Neurological: Alert and oriented to person, place, and time. Follows all commands. No focal deficits, speech is clear and fluent. Course Vital Signs Vital signs: Vital Signs Pulse Rate 77 03/05/24 22:53 Respiratory Rate 20 03/05/24 22:53 Blood Pressure 149/102 H 03/05/24 22:53 Pulse Oximetry 97 03/05/24 22:53 Oxygen Delivery Room Air 03/05/24 22:53 Pulse Rate 78 03/05/24 23:08 Respiratory Rate 20 03/05/24 22:53 Blood Pressure 149/102 H 03/05/24 22:53 Pulse Oximetry 98 03/05/24 23:08 Oxygen Delivery Room Air 03/05/24 23:08 MDM - Chest Pain MDM Narrative Medical decision making narrative: The patient was evaluated by myself in the emergency department. History is obtained from patient who is an independent historian and physical exam was performed. External medical records were reviewed at this time. IV was established and pertinent tests were ordered.
[2024-03-06 01:10] LABS: Magnesium 1.9 mg/dL (1.6-2.3)
--- NOTE | 2024-03-06 01:37 | ECG_ITS ---
[facility] [address] Test Date: 2024-03-06 Pat Name: Liat Hernandez Department: Room: Gender: F Dialysis Registered Nurse: : 1990 Requested By: Maryjo Marc Order Number: [id number] Reading MD: Yumiko Fontana M.D. Measurements Intervals [place] Rate: 63 P: 57 NC: 187 QRS: 60 QRSD: 87 T: 33 QT: 385 QTc: 396 Interpretive Statements SINUS RHYTHM WITH SINUS ARRHYTHMIA T WAVE ABNORMALITY IN THE ANTERIOR LEADS, CONSIDER ISCHEMIA Compared to ECG 03/05/2024 22:57:05 NO SIGNIFICANT CHANGES Electronically Signed On 03-06-2024 14:01:34 CDT by Yumiko Fontana M.D.
[2024-03-06 02:03] LABS: Troponin I < 0.012 ng/mL (0.000-0.034)
[2024-03-06 02:10] VITALS: BP 134/96; PULSE 70; RESP 16; O2SAT 100
== END 2024-03-06 02:12 | disposition home or self-care (01) ==
PROVIDERS: Emergency Provider Emergency Medicine
DX: R07.89 Other chest pain (principal); E87.6 Hypokalemia
CPT/HCPCS: 36415; 71045; 80053; 83690; 83735; 84484; 85025; 85610; 85730; 93005; 99284; A9270

== ENCOUNTER 2025-08-08 12:04 | Emergency (ER) | payer OTHER, SELFPAY ==
--- NOTE | ~2025-08-08 | XR_ITS ---
Clinical history:Chest pain mid thorax EXAM:X-ray chest 2 views TECHNIQUE:Frontal and lateral images of the chest were obtained. Comparisons:03/05/2024 FINDINGS: Heart is not enlarged. No pneumothorax. No pleural effusion. No free air the diaphragm. No focal pulmonary consolidation. IMPRESSION: 1. No acute pulmonary process identified. If symptoms persist or worsen, consider a short-term follow-up study or chest CT imaging for further assessment. Reviewed, dictated and finalized at location Q. ICAL TEAM LEAD IMPRESSION: 1. No acute pulmonary process identified. If symptoms persist or worsen, consider a short-term follow-up study or chest C T imaging for further assessment.
--- OUTSIDE RECORDS SUMMARY | 2025-08-08 11:30 | XMS_ITS | Encounter Summary ---
Author Organization [facility] Healthcare Address [address] [place] [address] Care Team Providers Care Adjunct Trainer Name Role Phone Estrellita Ball MD Primary Care Provider +1- [phone] Reason for Referral * Cardiology (Routine) - Authorized Specialty Diagnoses / Procedures Referred By Contac t Referred To Contact Diagnoses Other chest pain Procedures ECG 12 lead Aby Oliver NP [address] [facility] [place] [address] [place] [address] Phone: tel: [facility] Referral ID Status Reason Start Date Expiration Date V isits Requested Visits Authorized [id number] Authorized 08/08/2025 09/07/2026 1 1 INSOLE CHANNELER Reason for Visit * Reason Comments Chest Pain Heavy chest pains st arted about 15 minutes ago, then got light and now when she breathe in gets a sharp pain in the chest Encounter Details Date Type Department Care Team (Late st Contact Info) Description 08/08/2025 11:30 AM WELT INSOLE CHANNELER Office Visit [facility] Convenient Care at [address] [address] Aby Oliver NP [facility] [address] [address] Other chest pain (Primary Dx) Social History Tobacco Use Types Packs/Day Years Used Date Smoking Tobacco: Never Smokeless Tobacco: Never Comments Unknown Sex and Gender Information Value Date Recorded Sex Assigned at Not on file Legal Sex Female 12:18 PM CDT Gender Identity Not on file Sexual Orientation Not on file documented as of this encounter Last Filed Vital Signs Vital Sign Reading Time Taken Comments Blood Pressure 140/92 08/08/2025 11:22 AM WELT INSOLE CHANNELER Pulse 77 08/08/2025 11:22 AM WELT INSOLE CHANNELER Temperature - - Respiratory Rate - - Oxygen Saturation 98% 08/08/2025 11:22 AM WELT INSOLE CHANNELER Inhaled Oxygen Concentration - - Weight - - Height - - Body Mass Index - - documented in this encounter Functional Status documented as of this encounter Progress Notes * Aby Oliver, ALEX - 08/08/2025 11:30 AM CST Images from the original note were not included. Patient ID: Liat Hernandez is a 35 y.o. female followed by Estrellita Ball MD Chief Complaint Patient presents with Chest Pain Heavy chest pains started about 15 minutes ago, then got light and now when she breathe in gets a sharp pain in the chest Patient presents to the clinic with reports of chest pain and lightheadedness that has started within the last hour. Patient reports a history of high blood pressure. Patient denies difficulty breathing, pain radiating anywhere, fevers, or injury. Patient has not taken anything [id number]. Review of Systems Constitutional: Negative for chills, fatigue and fever. Respiratory: Negative for cough. Cardiovascular: Positive for chest pain. Neurological: Positive for light-headedness. Negative for weakness and headaches. Vitals: 08/08/25 1122 BP: 140/92 Pulse: 77 SpO2: 98% Physical Exam Vitals reviewed. Constitutional: General: She is not in acute distress. Appearance: Normal appearance. She is not ill-appearing. Comments: Tearful HENT: Head: Normocephalic. Mouth/Throat: Lips: [place]. Cardiovascular: Rate and Rhythm: Normal rate and regular rhythm. Heart sounds: Normal heart sounds. No murmur heard. Pulmonary: Effort: Pulmonary effort is normal. No respiratory distress. Breath sounds: Normal breath sounds. Skin: General: Skin is warm. Neurological: Mental Status: She is alert and oriented to person, place, and time. Psychiatric: Mood and Affect: Mood normal. Behavior: Behavior is cooperative. Diagnoses and all orders for this visit: Other chest pain (Primary) - ECG 12 lead EKG read by Cardiology as normal sinus rhythm with normal intervals this read scanned into patient's chart. Orders Placed This Encounter Procedures ECG 12 lead Please select the performing location:: [facility] [[id number]] Performing department:: [facility] [[id number]] Reason / Symptom: Chest Pain Assessment/Plan --Sending patient to the ER for further examination and testing to rule out any cardiac etiology. Recommended EMS. Patient declined EMS and states that she wants to drive herself. Disposition Treatment plan including expectations, follow up, and return precautions discussed with patient/parent, verbalizes understanding. Medication dosage, use, and potential adverse reactions discussed with patient/parent. Advised to follow up with PCP if symptoms do not resolve as expected or sooner if condition worsens. Discussed Signs/symptoms warranting ER evaluation including worsening fever, increased shortness ofbreath, chest pain, severe N/V/D, or any other worrisome symptoms Patient and/or guardian was given an opportunity to ask questions, questions answered. Patient Education --GO TO ER Aby Oliver NP This office note has been partially dictated using Tag'By software, and as a result portions of the record may have been created with this software. Occasional wrong-word or 'jigze-i-[id number]' substitutions may have occurred due to the inherent limitations of voice recognition software. Read the chartcarefully and recognize, using context, where substitutions have occurred. INSOLE CHANNELER documented in this encounter Plan of Treatment Not on file documented as of this encounter Procedures Procedure Name Priority Date/Time Associated Diagnosis Comments ECG 12-LEAD Routine 08/08/2025 11:41 AM WELT INSOLE CHANNELER Other chest pain documented in this encounter Results * ECG 12 lead (08/08/2025 11:41 AM WELT INSOLE CHANNELER) Aby Oliver NP ECG ORDERABLES Final Result documented in this encounter Visit Diagnoses Diagnosis Other chest pain- Primary documented in this encounter Care Teams Adjunct Trainer Relationship Specialty Start Date End Date Estrellita Ball MD [address] [place] [address] [place] [address] PCP - General Family Medicine 04/02/21 documented as of this encounter
--- OUTSIDE RECORDS SUMMARY | 2025-08-08 11:30 | XMS_ITS | Encounter Summary ---
Author Organization [facility] Healthcare Address [address] [place] [address] Care Team Providers Care Accounts Receivable Specialist Name Role Phone Estrellita Ball MD Primary Care Provider +1- [phone] Reason for Referral * Cardiology (Routine) - Authorized Specialty Diagnoses / Procedures Referred By Contac t Referred To Contact Diagnoses Other chest pain Procedures ECG 12 lead Aby Oliver NP [address] [facility] [address] [place] [address] Phone: tel: [facility] Referral ID Status Reason Start Date Expiration Date V isits Requested Visits Authorized [id number] Authorized 08/08/2025 09/07/2026 1 1 ECT FINANCIAL ANALYST Reason for Visit * Reason Comments Chest Pain Heavy chest pains st arted about 15 minutes ago, then got light and now when she breathe in gets a sharp pain in the chest Encounter Details Date Type Department Care Team (Late st Contact Info) Description 08/08/2025 11:30 AM PROJECT FINANCIAL ANALYST Office Visit [facility] Convenient Care at [address] [address] Aby Oliver NP [facility] [address] [address] Other chest pain (Primary Dx) [...] Comments Blood Pressure 140/92 08/08/2025 11:22 AM PROJECT FINANCIAL ANALYST Pulse 77 08/08/2025 11:22 AM PROJECT FINANCIAL ANALYST Temperature - - Respiratory Rate - - Oxygen Saturation 98% 08/08/2025 11:22 AM PROJECT FINANCIAL ANALYST Inhaled Oxygen Concentration - - Weight - [...] or injury. Patient has not taken anything [id number]. Review of Systems Constitutional: Negative for chills, fatigue and fever. Respiratory: Negative for cough. Cardiovascular: Positive for chest pain. Neurological: Positive for light-headedness. Negative for weakness and headaches. Vitals: 08/08/25 1122 BP: 140/92 Pulse: 77 SpO2: 98% Physical Exam Vitals reviewed. Constitutional: General: She is not in acute distress. Appearance: Normal appearance. She is not ill-appearing. Comments: Tearful HENT: Head: Normocephalic. Mouth/Throat: Lips: [place]. Cardiovascular: Rate and Rhythm: Normal rate and [...] 12 lead Please select the performing location:: [facility] [[id number]] Performing department:: [facility] [place] [[id number]] Reason / Symptom: Chest Pain Assessment/Plan --Sending [...] office note has been partially dictated using Zerply software, and as a result portions of the record may have been created with this software. Occasional wrong-word or 'urfbe-z-ogdc' substitutions may have occurred due to the inherent limitations of voice recognition software. Read the chartcarefully and recognize, using context, where substitutions have occurred. ECT FINANCIAL ANALYST documented in this encounter Plan of Treatment Not on file documented as of this encounter Procedures Procedure Name Priority Date/Time Associated Diagnosis Comments ECG 12-LEAD Routine 08/08/2025 11:41 AM PROJECT FINANCIAL ANALYST Other chest pain documented in this encounter Results * ECG 12 lead (08/08/2025 11:41 AM PROJECT FINANCIAL ANALYST) Aby Oliver NP ECG ORDERABLES Final Result documented in this encounter Visit Diagnoses Diagnosis Other chest pain- Primary documented in this encounter Care Teams Accounts Receivable Specialist Relationship Specialty Start Date End Date Estrellita Ball MD [address] [place] [address] [place] [address] PCP - General Family Medicine 04/02/21 documented as of this encounter
[2025-08-08 12:05] VITALS: BP 166/96; PULSE 70; RESP 16; TEMP 36.3; O2SAT 100
--- NOTE | 2025-08-08 12:05 | ECG_ITS ---
Test Date: 2025-08-08 12:14:00 Measurements Intervals [place] Rate: 67 P: 27 WI: 174 QRS: 2 QRSD: 88 T: 12 QT: 376 QTc: 397 Interpretive Statements SINUS RHYTHM Electronically Signed On 08-08-2025 12:45:54 SHEET COMBINING OPERATOR by Robb Lugo D.O
--- OUTSIDE RECORDS SUMMARY | 2025-08-08 12:26 | XMS_ITS | Clinical Summary ---
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 Overview (09/03/2021): Added automatically from request for surgery [id number] Encounters Date Type Department Care Team Description 08/08/2025 11:30 AM TRACTOR MECHANIC Office Visit [facility] Convenient Care at [address] [address] Aby Oliver NP Other chest pain (Primary Dx) from Last 3 Months Surgical History Surgery Date Site/Laterality Comments SECTION Medical History Medical History Date Comments Hypertension Migraines Family History Medical History Relation Name Comments Diabetes Maternal Grandfather Relation Name Status Comments Maternal Grandfather Social History Tobacco Use Types Packs/Day Years Used Date Smoking Tobacco: Never Smokeless Tobacco: Never Comments Unknown Sex and Gender Information Value Date Recorded Sex Assigned at Not on file Legal Sex Female 12:18 PM CDT Gender Identity Not on file Sexual Orientation Not on file Last Filed Vital Signs Vital Sign Reading Time Taken Comments Blood Pressure 140/92 08/08/2025 11:22 AM TRACTOR MECHANIC Pulse 77 08/08/2025 11:22 AM TRACTOR MECHANIC Temperature 37.6 C (99.7 F) 09/22/2021 8:03 AM TRACTOR MECHANIC Respiratory Rate 16 09/22/2021 8:03 AM TRACTOR MECHANIC Oxygen Saturation 98% 08/08/2025 11:22 AM TRACTOR MECHANIC Inhaled Oxygen Concentration - - Weight 80.3 kg (177 lb) 09/21/2021 7:04 AM TRACTOR MECHANIC Height 160 cm (5' 3) 09/21/2021 7:04 AM TRACTOR MECHANIC Body Mass Index 31.35 09/21/2021 7:04 AM TRACTOR MECHANIC Plan of Treatment Health Maintenance Due Date Last Done Comments Cervical Cancer Screening 1990 Depression Screening 1992 Hepatitis C Screening 1990 Varicella Vaccines (2 of 2 - 2-dose childhood series) 08/21/1997 05/29/1997 DTaP/Tdap/Td Vaccine (6 - Tdap) 2003 05/29/1997, 03/12/1994, 03/02/1994, Additional history exists Regular Well Visit/Exam 18-64 2010 HPV Vaccines (1 - 3-dose SCDM series) 2019 Influenza Vaccine (#1) 2025 Hepatitis B Screening Completed 07/02/2003 , 06/16/2002, 06/06/2002, Additional history exists Pneumococcal vaccine <65 Aged Out No longer eligible based on patient's age to complete this topic Procedures Procedure Name Priority Date/Time Associated Diagnosis Comments ECG 12-LEAD Routine 08/08/2025 11:41 AM TRACTOR MECHANIC Other chest pain from Last 3 Months Results * ECG 12 lead (08/08/2025 11:41 AM TRACTOR MECHANIC) Aby Oliver NP ECG ORDERABLES Final Result from Last 3 Months Insurance [employer] OPEN ACCESS [employer] [place] [facility] [place] [facility] [place] Advance Directives For more information, please contact: [phone] * Full Code (Latest Code Status on File) Date Activated Date Inactivated Comments 09/21/2021 1:29 PM 09/22/2021 3:08 PM Care Teams Thread Clipper Relationship Specialty Start Date End Date Estrellita Ball MD [facility] [place], [place] [id number] PCP - General Family Medicine 04/02/21
--- OUTSIDE RECORDS SUMMARY | 2025-08-08 12:26 | XMS_ITS | Clinical Summary ---
Author Organization [facility] Address [address] [place] [address] Care Team Providers Care Rental Sales Agent Name Role Phone Unavailable Primary Care Provider Unavailabl e Source Comments [facility],non-owned Affiliates and Associated Physician Practices is amultiple site organization consisting of ambulatory clinics and hospital sitesin [place], [place], [place] and [place]. This disclosure is being madepursuant to the Care Everywhere program and may not contain all information available regarding this patient. Last updated 18.[facility] Active Problems Problem Noted Date Diagnosed Date Abnormal quad screen 01/18/2016 Encounter for ultrasound 01/12/2016 Social History Tobacco Use Types Packs/Day Years Used Date Smoking Tobacco: Never Assessed Comments No Sex and Gender Information Value Date Recorded Sex Assigned at Not on file Legal Sex Female 12:27 PM CDT Gender Identity Not on file Sexual Orientation Not on file Plan of Treatment Health Maintenance Due Date Last Done Comments HIV SCREENING 2007 HEPATITIS C SCREENING 03/12/2010 DTAP/TDAP/TD VACCINES (1 - Tdap) 2011 HEPATITIS B VACCINE (1 of 3 - 19+ 3-dose series) 2011 PAP SMEAR 2013 HPV VACCINE (1 - 3-dose SCDM series) 2019 DEPRESSION SCREENING 10/02/2024 COVID-19 VACCINE (1 - 2023-2 5 season) 2025 INFLUENZA VACCINE (#1) 2025 ZOSTER VACCINE (1 of 2) 2042 HIB VACCINE Aged Out No longer eligi ble based on patient's age to complete this topic MENINGOCOCCAL (Group B) VACC INE SHARED DECISION-MAKING Aged Out No longer eligibl e based on patient's age to complete this topic MENINGOCOCCAL GROUPS A/C/Y/W VACCINE Aged Out No longer eligible b ased on patient's age to complete this topic PNEUMOCOCCAL VACCINE Aged Out No long er eligible based on patient's age to complete this topic Insurance MEDICAID [employer]NA [facility]
--- OUTSIDE RECORDS SUMMARY | 2025-08-08 12:26 | XMS_ITS | Clinical Summary ---
Author Organization [employer] Address [address] [facility] Attn: Sam Prefany [place] [id number] Care Team Providers Care Engraver Hand Hard Metals Name Role Phone Unavailable Primary Care Provider Unavailabl e Allergies No known active allergies Medications predniSONE (DELTASONE) 20 mg tablet Take 2 tablets by ORAL route once daily for 3 days. Take with food. Do not take with aspirin or NSAIDs such as Aleve or ibuprofen etc. 6 Tablet 05/01/2022 2:11 PM CDT 2 Active ibuprofen (MOTRIN) 600 mg tablet Take 1 Tablet (600 mg) by mouth 3 times daily as needed for pain. 14 Tablet 05/04/2022 7:40 PM CDT 2 Active ergocalciferol (VITAMIN D2) 50,000 unit capsule Take 1 Capsule (50,000 Units) by mouth every 7 days. 12 Capsule 3 05/11/2023 9:38 AM CDT 3 Active labetaloL (NORMODYNE) 200 mg tablet Take 1 Tablet (200 mg) by mouth every 12 hours. 60 Tablet 1 05/11/2023 9:38 AM CDT 3 Active lisinopril-hydr oCHLOROthiazide (ZESTORETIC) 10-12.5 mg tablet Take 2 Tablets by mouth daily. 60 Tablet 3 11/24/2023 7:14 PM EFFICIENCY ENGINEER 3 Active ibuprofen (MOTRIN) 600 mg tablet Take 1 Tablet (600 mg) by mouth every 6 hours as needed with food. 30 Tablet 3 Active Cholecalciferol , Vitamin D3, 50 mcg (2,000 unit) Capsule Take 1 capsule by mouth every day with meals 30 Capsule 6 4 Active lisinopril-hydr oCHLOROthiazide (ZESTORETIC) 10-12.5 mg tablet Take 2 Tablets by mouth daily. 60 Tablet 3 10/14/2024 6:14 PM EFFICIENCY ENGINEER 4 Active SUMAtriptan (IMITREX) 100 mg tablet Take 1 Tablet (100 mg) by mouth 1 time daily as needed. 9 Tablet 6 4 Active topiramate (TOPAMAX) 50 mg tablet Take 1 tablet by mouth at bedtime for 7 days, then take 2 tablets by mouth at bedtime and maintain 60 Tablet 5 4 Active semaglutide, weight loss, (Wegovy) 0.25 mg/0.5 mL Pen Injector Inject 0.25 mg under the skin once weekly 2 mL 4 Active lidocaine (lidocaine viscous 2%) 2 % Solution Swish, gargle, and spit 5 mL by mouth 2-3 times daily as needed 100 mL 4 Active ondansetron (Zofran) 4 mg Tablet Take 1 Tablet (4 mg) by mouth every 8 hours. 10 Tablet 4 Active spironolactone (Aldactone) 25 mg tablet Take 1 Tablet (25 mg) by mouth daily. 90 Tablet 3 4 Active semaglutide, weight loss, (Wegovy) 0.25 mg/0.5 mL Pen Injector Inject 0.5 mL (0.25 mg) by subcutaneous injection daily. 2 mL 11 06/20/2024 1:09 PM CDT 4 Active semaglutide, weight loss, (Wegovy) 0.25 mg/0.5 mL Pen Injector Inject 0.5 mL (0.25 mg) by subcutaneous injection every 7 days. 2 mL 04/29/2024 7:54 PM CDT 4 Active semaglutide, weight loss, (Wegovy) 0.5 mg/0.5 mL Pen Injector Inject 0.5 mL (0.5 mg) by subcutaneous injection every 7 days. 2 mL 4 Active Social History Tobacco Use Types Packs/Day Years Used Date Smoking Tobacco: Never Assessed Comments Unknown Sex and Gender Information Value Date Recorded Sex Assigned at Not on file Legal Sex Female 3:26 PM CDT Gender Identity Not on file Sexual Orientation Not on file Plan of Treatment Health Maintenance Due Date Last Done Comments DTAP/TDAP/TD VACCINES (1 - Tdap) 2011 HEPATITIS B VACCINES (1 of 3 - 19+ 3-dose series) 03/02 HPV/Cotest (21-29) 2013 HPV VACCINES (1 - 3-dose SCDM series) 2019 CERVICAL CANCER SCREENING 2022 HPV/Cotest (30-65) 2022 PAP SMEAR 2022 INFLUENZA VACCINE (#1) 2025 Insurance RX [facility] [employer] (INTERNAL) [facility]
[2025-08-08 12:32] LABS: Hematocrit 38.8 % (37.0-47.0); Hemoglobin 13.2 g/dL (12.0-15.0); Immature Granulocyte Percent A 0.1 % (0-0.5); Lymphocytes Absolute Auto 1.69 K/mm3 (0.9-3.2); Mean Corpuscular HGB Conc 34.0 g/dl (32-36); Mean Corpuscular Hemoglobin 31.0 pg (26-34); Mean Corpuscular Volume 91.1 fl (80-100); Nucleated Red Blood Cells Absolute Auto 0.000 K/mm3 (0.0-0.012); Nucleated Red Blood Cells Perc 0.0 % (0.0-0.2); Platelet Count Result 263 k/mm3 (150-375); Red Blood Count 4.26 M/mm3 (4.2-5.4); White Blood Count 6.7 K/mm3 (4.5-10.0)
[2025-08-08 12:49] LABS: Alanine Aminotransferase 21 U/L (6-35); Albumin Level 4.8 g/dL (3.5-5.1); Alkaline Phosphatase 51 U/L (38-126); Anion Gap 9 mmol/L (4-12); Aspartate Amino Transferase 35 U/L (14-36); Bilirubin,Total 0.5 mg/dL (0.2-1.3); Blood Urea Nitrogen 19 mg/dL (7-17); Calcium 9.3 mg/dL (8.4-10.2); Carbon Dioxide 22 mmol/L (22-30); Chloride 105 mmol/L (98-107); Estimated CRCL calculation 73 ml/min; Estimated Glomerular Filt Rate > 60; Glucose 118 mg/dL (65-110); Lipase 149 U/L (23-300); Potassium 3.9 mmol/L (3.4-5.0); Sodium 136 mmol/L (137-145); Total Protein 8.6 g/dL (6.3-8.2)
[2025-08-08 12:50] LABS: INR 0.9; Partial Thromboplastin Time 26.6 Seconds (22.3-36.8); Prothrombin Time 12.2 Seconds (11.1-14.7)
[2025-08-08 12:56] LABS: Troponin I < 0.012 ng/mL (0.000-0.034)
--- OUTSIDE RECORDS SUMMARY | 2025-08-08 14:06 | XMS_ITS | Clinical Summary ---
Author Organization [address] Address [address] [place] [id number] Care Team Providers Care Spinner Iron Name Role Phone Estrellita Ball MD Primary Care Provider [phone]- [phone] Allergies No known active allergies Medications lisinopril-hydr [...] (09/03/2021): Added automatically from request for surgery [id number] Encounters Date Type Department Care Team Description 08/08/2025 11:30 AM ASSOCIATE PROFESSOR PHYSICIAN Office Visit [facility] at [address] [phone] Aby Oliver NP Other chest [...] Comments Blood Pressure 140/92 08/08/2025 11:22 AM ASSOCIATE PROFESSOR PHYSICIAN Pulse 77 08/08/2025 11:22 AM ASSOCIATE PROFESSOR PHYSICIAN Temperature 37.6 C (99.7 F) 09/22/2021 8:03 AM ASSOCIATE PROFESSOR PHYSICIAN Respiratory Rate 16 09/22/2021 8:03 AM ASSOCIATE PROFESSOR PHYSICIAN Oxygen Saturation 98% 08/08/2025 11:22 AM ASSOCIATE PROFESSOR PHYSICIAN Inhaled Oxygen Concentration - - Weight 80.3 kg (177 lb) 09/21/2021 7:04 AM ASSOCIATE PROFESSOR PHYSICIAN Height 160 cm (5' 3) 09/21/2021 7:04 AM ASSOCIATE PROFESSOR PHYSICIAN Body Mass Index 31.35 09/21/2021 7:04 AM ASSOCIATE PROFESSOR PHYSICIAN Plan of Treatment Health Maintenance Due Date [...] Comments ECG 12-LEAD Routine 08/08/2025 11:41 AM ASSOCIATE PROFESSOR PHYSICIAN Other chest pain from Last 3 Months Results * ECG 12 lead (08/08/2025 11:41 AM ASSOCIATE PROFESSOR PHYSICIAN) Aby Oliver NP ECG ORDERABLES Final Result from Last 3 Months Insurance [employer] OPEN ACCESS [employer] [place] [facility] [place] [facility] [place] Advance Directives For more information, please contact: [phone] * Full Code (Latest Code Status on File) Date Activated Date Inactivated Comments 09/21/2021 1:29 PM 09/22/2021 3:08 PM Care Teams Spinner Iron Relationship Specialty Start Date End Date Estrellita Ball MD [facility] [place], [place] [id number] PCP - General Family Medicine 04/02/21
--- OUTSIDE RECORDS SUMMARY | 2025-08-08 14:06 | XMS_ITS | Clinical Summary ---
Author Organization [facility] Address [address] [place] [address] Care Team Providers Care Drop Clipper Name Role Phone Unavailable Primary Care Provider Unavailabl e Source Comments [facility],non-owned Affiliates and Associated Physician Practices is amultiple site organization consisting of ambulatory clinics and hospital sitesin [place], [place], [place] and [place]. This disclosure is being madepursuant to the Care Everywhere program and may not contain all information available regarding this patient. Last updated 18.[facility] Active Problems Problem Noted Date Diagnosed Date [...] topic Insurance MEDICAID [employer] BETTER [facility]
--- OUTSIDE RECORDS SUMMARY | 2025-08-08 14:06 | XMS_ITS | Clinical Summary ---
Author Organization [facility] Address [address] [facility] Attn: Sam Prefany [place] [id number] Care Team Providers Care Informatica Architect Name Role Phone Unavailable Primary Care Provider [...] daily. 60 Tablet 3 11/24/2023 7:14 PM MASONRY SUPERVISOR 3 Active ibuprofen (MOTRIN) 600 mg tablet [...] daily. 60 Tablet 3 10/14/2024 6:14 PM MASONRY SUPERVISOR 4 Active SUMAtriptan (IMITREX) 100 mg tablet [...]
== END 2025-08-08 14:18 | disposition left against medical advice (07) ==
LOC: ANHED 14:05
PROVIDERS: Emergency Provider Student in an Organized Health Care Education/Training Program
DX: R07.9 Chest pain, unspecified (principal)
CPT/HCPCS: 36415; 71046; 80053; 83690; 84484; 85025; 85610; 85730; 93005; 99199